=== PATIENT | male | born 1990 ===

== ENCOUNTER 2022-11-03 09:34 | Emergency (ER) | payer OTHER, SELFPAY ==
[2022-11-03 09:36] VITALS: BP 121/82; PULSE 59; RESP 16; TEMP 37; O2SAT 99; BMI 22.2
[2022-11-03 09:58] LABS: COVID-19 Test Positive (Negative); IDNOW Serial# 08D9AD1C
--- NOTE | 2022-11-03 10:05 | ED_ITS ---
HPI - General Adult General Chief complaint: General Medical Stated complaint: nausea/ fever Time Seen by Provider: 11/03/22 10:05 Source: patient Mode of arrival: ambulatory Limitations: no limitations History of Present Illness HPI narrative: This is a 32-year-old male without significant medical history presenting with fatigue, malaise, nausea, vomiting, diarrhea, body aches and pain since Monday, 3 days ago, symptoms have been unchanged ever since. No known sick contacts. Patient eating and drinking. Normal bowel habits. Denies chest pain, shortness of breath, fevers, chills, hematemesis, headache, vision changes, dizziness, weakness Related Data Previous Rx's Medication Instructions Recorded ondansetron 4 mg disintegrating 4 mg PO Q6H PRN nausea and 11/03/22 tablet vomiting #14 tabs Allergies Allergy/AdvReac Type Severity Reaction Status Date / Time seafood Allergy Shortness Verified 11/03/22 09:38 of Breath Review of Systems Review of Systems: Constitutional : No Weight loss, No Fever, No Chills, + Fatigue, + Malaise ENT/Mouth : No sore throat, No Rhinorrhea Eyes: No Eye Pain, No Swelling, No Redness Cardiovascular : No Chest Pain, No SOB, No Dyspnea on Exertion, No Orthopnea, No Edema, No Palpitations Respiratory : No Cough, No Sputum, No Wheezing Gastrointestinal : + Nausea, + Vomiting, + Diarrhea, No Constipation, No abdominal Pain, No Hematochezia, No Melena Genitourinary : No Dysuria, No Urinary Frequency, No Hematuria, Musculoskeletal : No joint pain, + Myalgias, No Joint Swelling Skin : No Skin Lesions, No rash Neuro : No Weakness, No Numbness, No Dizziness, No Headache Psych : No Anxiety/Panic, No Depression All other systems reviewed and are negative Yes all other systems are reviewed and are negative [facility] Past Medical History Attestation statement: The following information was validated with the patient. Source: old records reviewed and nursing notes reviewed Physical Exam ED Vital Signs: Vital Signs - 24 hr 11/03/22 09:36 Temperature 98.6 F Pulse Rate 59 Respiratory Rate 16 Blood Pressure 121/82 Pulse Oximetry 99 Oxygen Delivery Method Room Air BMI result Body Mass Index 22.2 Vital signs stable Appearance: Alert.? Oriented X3.? No acute distress.? Head: Normocephalic, atraumatic, no step-offs or deformities Eyes: Pupils equal, round and reactive to light.? ENT: Pharynx normal.? Neck: Normal inspection.? Neck supple.? CVS: Normal heart rate and rhythm.? Pulses normal.? Respiratory: No respiratory distress.? Breath sounds normal.? Abdomen: Soft and nontender.? Negative McBurney's's, Lou's, Rosving Skin: Skin warm and dry.? Normal skin color.? Normal skin turgor.? Extremities: No lower extremity edema.? No calf ttp. 5/5 strength to bilateral upper and lower extremities Back: No midline tenderness, no C-spine tenderness, full range of motion, no CVA tenderness bilaterally Neuro: Oriented X 3.? No motor deficit.? No sensory deficit. CN 2-12 intact Medical Decision Making Medical Decision Making [facility] Narrative: 1007 This is a 32-year-old male presenting to the emergency department for evaluation of fatigue, malaise, myalgias, nausea, diarrhea and vomiting x3 days. No known sick contacts Physical exam benign Likely viral illness. Unlikely obstruction, acute abdomen, appendicitis, cholecystitis, cholangitis, choledocholithiasis, pancreatitis, diverticulitis. Will rule out COVID-19 and influenza. I do not suspect metabolic derangements Plan discharge home with supportive measures patient tested positive for COVID- 19. Educated patient on diagnosis and treatment plan, answered all question, patient verbalizes understanding. At this time patient will be discharged home, advised to return with new or worsening symptoms. Educated on worrisome signs and symptoms and when to return. At this time I feel comfortable discharge home. Differential Diagnosis Differential Diagnoses: The differential diagnosis associated with the presentation includes Likely viral illness. Unlikely obstruction, acute abdomen, appendicitis, cholecystitis, cholangitis, choledocholithiasis, pancreatitis, diverticulitis. Will rule out COVID-19 and influenza. I do not suspect metabolic derangements Admission/Observation Consideration of admission/observation: Escalation of care including admission/observation considered No indication Lab Data [facility] Lab Attestation statement: I reviewed the patient's lab results. Labs: Lab Results 11/03/22 Range/Units 09:40 COVID-19 (MARCELO) Positive A (Negative) COVID-19 Clin Com See Note Influenza Type A (ZAK) Negative (Negative) Influenza Type B (ZAK) Negative (Negative) Influenza A & B Note See Note Discharge Plan Discharge Clinical Impression: COVID-19 Patient Disposition: Home, Self-Care Instructions: COVID-19 (Coronavirus Disease 2019) (ED) Additional Instructions: Take your medications as prescribed. If you were prescribed antibiotics today, it is important that you take your medication to their entirety, do not skip any doses, do not finish them early. Today you tested positive for COVID-19. Take Ibuprofen or Tylenol as needed for fevers or body aches. Quarantine for 5 days and ensure you wear a mask. After 5 days you should wear a mask for 5 days after that. Practice social distancing and good hand hygiene. Drink plenty of fluids. Follow-up with your primary care provider this week. Return to the emergency department with new or worsening symptoms. In case of emergency call 911 You can purchase a pulse oximeter from your local pharmacy or grocery store, and monitor your oxygen saturation if it goes below 94% you should return to the emergency department for further evaluation. Please speak to her PCP if you would like Paxlovid an antiviral medication [place] [facility] medicamentos seg?n lo recetado. Si hoy te recetaron antibi?ticos, es importante que tomes tu medicaci?n en senior totalidad, no te saltes ninguna dosis, no las termines antes de tiempo. Hoy diste positivo por COVID-19. [place] ibuprofeno o Tylenol seg?n sea necesario para la fiebre o los olga lidia corporales. Ponga en cuarentena yajaira 5 d?as y aseg?rese de usar malgorzata m?scara. Despu?s de 5 d?as debes usar malgorzata mascarilla yajaira los 5 d?as siguientes. Practique el distanciamiento social y malgorzata buena higiene de mayra. Beber mucho l?quido. Romario un seguimiento con senior proveedor de atenci?n primaria esta semana. Regrese al departamento de emergencias si los s?ntomas son nuevos o empeoran. En erlinda de emergencia llame al 911. Puede comprar un ox?metro de pulso en senior farmacia o supermercado local y controlar senior saturaci?n de ox?vickie. Si desciende por debajo del 94%, debe regresar al departamento de emergencias para malgorzata evaluaci?n adicional. Hable con senior PCP si desea que Paxlovid sea un medicamento antiviral. Prescriptions: New ondansetron 4 mg tablet,disintegrating 4 mg PO Q6H PRN (Reason: nausea and vomiting) Qty: 14 0RF Referrals: Physician,Unknown J [Primary Care Provider] - 2 days Stand Alone Forms: Work/School Release
[2022-11-03 10:10] LABS: IDNOW Serial# BCCEAD1C; Influenza A Negative (Negative); Influenza B2 Negative (Negative)
== END 2022-11-03 10:27 | disposition home or self-care (01) ==
LOC: HO.ED 10:23
PROVIDERS: Emergency Provider Emergency Medicine
DX: U07.1 COVID-19 (principal)
CPT/HCPCS: 87502; 87635; 99283

== ENCOUNTER 2023-05-25 18:21 | Emergency (ER) | payer OTHER, SELFPAY ==
--- NOTE | 2023-05-25 19:01 | ED_ITS ---
HPI - General Adult General Chief complaint: Upper Respiratory Symptoms Stated complaint: headache/back pain since yesterday Time Seen by Provider: 05/25/23 23:40 Source: patient Mode of arrival: ambulatory Limitations: no limitations History of Present Illness HPI narrative: patient comes to the emergency room complaining of diffuse body aches, headache. Patient states that she also has mild sore throat, no sick contacts, no fever chills, no nausea vomiting or diarrhea. No chest pain or shortness of breath. Related Data Previous Rx's ?Medication ?Instructions ?Recorded ondansetron 4 mg disintegrating 4 mg PO Q6H PRN nausea and 11/03/22 tablet vomiting #14 tabs acetaminophen 500 mg tablet 500 mg PO Q6H PRN fever or pain 05/25/23 #20 tabs ibuprofen 600 mg tablet 600 mg PO Q8H PRN fever or pain 05/25/23 #14 tabs Allergies Allergy/AdvReac Type Severity Reaction Status Date / Time seafood Allergy Shortness Verified 05/25/23 19:41 of Breath Review of Systems Review of Systems: Constitutional : No Weight loss, No Fever, No Night Sweats, Complaining of fatigue and diffuse body aches, chills ENT/Mouth : No Hearing loss, No Ear Pain, No Nasal Congestion, No Sinus Pain, No Hoarseness, No sore throat, No Rhinorrhea, No Swallowing Difficulty Eyes: No Eye Pain, No Swelling, No Redness, No Foreign Body, No Discharge, No Vision Changes Cardiovascular : No Chest Pain, No SOB, No Dyspnea on Exertion, No Orthopnea, No Edema, No Palpitations Respiratory : No Cough, No Sputum, No Wheezing, No Smoke Exposure, No Dyspnea Gastrointestinal : No Nausea, No Vomiting, No Diarrhea, No Constipation, No ab dominal Pain, No Hematochezia, No Melena Genitourinary : no irregular bleeding, No Dysuria, No Urinary Frequency, No Hematuria, No Urinary Incontinence, No Urgency, No Flank Pain, No Urinary Flow Changes, No Hesitancy Musculoskeletal : No joint pain, No Myalgias, No Joint Swelling Skin : No Skin Lesions, No rash Neuro : No Weakness, No Numbness, No Paresthesias, No Loss of Consciousness, No Dizziness, complaining of mild Headache Psych : No Anxiety/Panic, No Depression, No SI/HI/AH/VH, No Social Issues, Heme/Lymph: No Bruising, No Bleeding,No Lymphadenopathy Endocrine : No Polyuria, No Polydipsia, No Temperature Intolerance [facility] Social History Social History Advance Directives: No Advance Directives Information Provided: Yes Physical Exam ED Vital Signs: Vital Signs - 24 hr 05/25/23 19:38 Temperature 98.2 F Pulse Rate 65 Respiratory Rate 14 Blood Pressure 121/80 Pulse Oximetry 100 Oxygen Delivery Method Room Air BMI result Body Mass Index 21.9 Const Other: Appearance: Alert. Oriented X3. No acute distress. Eyes: Pupils equal, round and reactive to light. ENT: Pharynx normal. Neck: Normal inspection. Neck supple. No lymph nodes noted. No crepitus CVS: Normal heart rate and rhythm. Pulses normal. Normal S1 and S2 Respiratory: No respiratory distress. Breath sounds normal. No Wheezing. No rales Abdomen: Soft and nontender. No rigidity. No distention. Skin: Skin warm and dry. Normal skin color. Normal skin turgor. Extremities: No lower extremity edema. No Lacerations. No Rash Neuro: Oriented X 3. No motor deficit. No sensory deficit. Moving all extremities. No slurred speech. CN 2 through 12 grossly intact Psych: calm, cooperative, normal affect Course Course Course Narrative: This is an RME: Additional HPI, ROS, PE not included below will be deferred to primary provider. 32 yo m presents with body aches, headaches, chills for 2 days. No sick contacts. Denies chest pain, shortness of breath, fevers, cough, sore throat. Medical Decision Making Medical Decision Making [facility] Narrative: My interpretation of labs: Patient tested negative for influenza COVID and RSV. Patient states that he has enough Tylenol at home, prescription of ibuprofen being given to him. Patient's 1st dose of ibuprofen given in the ED. Differential Diagnosis Differential Diagnoses: The differential diagnosis associated with the presentation includes ( COVID, influenza, RSV, viral illness,) Lab Data [facility] Lab Attestation statement: I reviewed the patient's lab results. Labs: Lab Results 05/25/23 Range/Units 21:07 Influenza Type A (PCR) NEGATIVE (Negative) Influenza Type B (PCR) NEGATIVE (Negative) RSV RNA Qual (PCR) NEGATIVE (Negative) SARS-CoV-2 RNA (RT-PCR) NEGATIVE (Negative) Discharge Plan Discharge Clinical Impression: Viral upper respiratory infection Patient Disposition: Home, Self-Care Instructions: Viral Syndrome (ED) Additional Instructions: Please follow-up with your primary care physician tomorrow. If you have any worsening or new symptoms, please return to the emergency room or call 911 Prescriptions: New ibuprofen 600 mg tablet 600 mg PO Q8H PRN (Reason: fever or pain) Qty: 14 0RF acetaminophen 500 mg tablet 500 mg PO Q6H PRN (Reason: fever or pain) Qty: 20 0RF No Action ondansetron 4 mg tablet,disintegrating 4 mg PO Q6H PRN (Reason: nausea and vomiting) Qty: 14 0RF Stand Alone Forms: Work/School Release Print Language: Thai
[2023-05-25 19:38] VITALS: BP 121/80; PULSE 65; RESP 14; TEMP 36.8; O2SAT 100; BMI 21.9
[2023-05-25 21:53] LABS: Influenza A PCR NEGATIVE (Negative); Influenza B PCR NEGATIVE (Negative); Resp Syncy Virus RNA Qual PCR NEGATIVE (Negative); SARS COV2 PCR INHOUSE NEGATIVE (Negative)
[2023-05-25 23:20] VITALS: O2SAT 97
[2023-05-25 23:59] VITALS: BP 114/74; PULSE 57; RESP 16; TEMP 36.9; O2SAT 97
[2023-05-26 00:22] VITALS: BP 125/79; PULSE 78; RESP 18; TEMP 36.3; O2SAT 96
== END 2023-05-26 00:25 | disposition home or self-care (01) ==
PROVIDERS: Physician Assistant; Emergency Provider Emergency Medicine
DX: J06.9 Acute upper respiratory infection, unspecified (principal)
CPT/HCPCS: 0241U; 99283; 99284